=== PATIENT | female | born 2000 | race Caucasian/White ===

== ENCOUNTER 2019-07-08 21:30 | Emergency (ER) | payer MEDICAID ==
[~2019-07-08] VITALS: Ht 165.1 cm; Wt 99.8 kg
[~2019-07-08 21:30] MED LIST: ALBU0.0939 IH
[2019-07-08 21:40] VITALS: BP 144/70
--- NOTE | 2019-07-08 21:43 | NUR ---
to lobby a/w bed ambulatory
--- NOTE | 2019-07-08 22:57 | NUR ---
PT AMBULATED TO BED 07
--- NOTE | 2019-07-08 22:57 | NUR ---
18 y/o female bib self for chest pain after taking 2 diet pills at 1300 today. Patient states that she has n/v, diarhea, body weakness. Pain is 4/10 at this time. A/ox4; clear lung sounds bilaterally. Bowel sounds heard throughout. Denies N/V at this time. ERMD made aware of status. Side railsx1. placed on monitor. PMH: Asthma Rx: Denies Nkda
--- NOTE | 2019-07-08 22:59 | NUR ---
ERMD EVALUATING PATIENT AT THIS TIME.
[2019-07-08] MEDS ORDERED: LORazepam 0.5 MG TAB PO ONE (23:35)
[2019-07-09] MEDS ORDERED: IBUPROFEN 600 MG TAB PO ONE (00:55)
[2019-07-09 02:42] VITALS: BP 112/66
== END 2019-07-09 02:42 | disposition home or self-care (01) ==
LOC: MED 21:30
DX: R00.2 Palpitations (principal); R07.89 Other chest pain; J45.909 Unspecified asthma, uncomplicated
CPT/HCPCS: 71045; 87804; 93005; 99284; Q0092